=== PATIENT | female | born 1990 | race Caucasian/White ===

== ENCOUNTER → 2016-08-07 | Outpatient (CLI) | payer OTHER | END | disposition home or self-care (01) | LOC: RAD.S 15:57 | DX: R10.11 Right upper quadrant pain (principal); R10.32 Left lower quadrant pain; Z97.5 Presence of (intrauterine) contraceptive device ==

== ENCOUNTER → 2016-08-09 | Outpatient (CLI) | payer OTHER | END | disposition home or self-care (01) | LOC: RAD.S 09:24 | DX: R10.11 Right upper quadrant pain (principal); R10.31 Right lower quadrant pain; R74.8 Abnormal levels of other serum enzymes; R94.8 Abnormal results of function studies of other organs and systems ==